=== PATIENT | male | born 1970 | race Caucasian/White ===

== ENCOUNTER 2019-05-29 12:22 | Emergency (ER) | payer SELFPAY ==
[~2019-05-29] VITALS: Ht 188 cm; Wt 81.6 kg
[2019-05-29 12:31] VITALS: BP 126/71
--- NOTE | 2019-05-29 12:38 | NUR ---
Patient ambulated to bed 12. RN evaluating patient at bedside.
[2019-05-29 13:00] VITALS: BP 135/77
--- NOTE | 2019-05-29 13:00 | NUR ---
PT IS A 48 Y/O MALE WHO PRESENTS TO THE ED C/O LACERATION. 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 NO BLEEDING NOTED AT THIS TIME. LAC NOTED TOWARDS TOP OF DIGIT. PT REPORTS 5/10 ACHING FINGER PAIN THAT DOES NOT RADIATE. UNKNOWN LAST TETANUS SHOT. CMS INTACT. PT DENIES, CP, SOB, N/V/D. PT AWAKE AND ALERT, RR EVEN/UNLABORED. PT REPOSITIONED FOR COMFORT, BED IN LOWEST POSITION. ER MD DR. OLSON NOTIFIED. WILL CONTINUE TO MONITOR. HX--HTN RX---LISINOPRIL/ HCTZ
--- NOTE | 2019-05-29 13:15 | NUR ---
PATIENT EXPRESSING WISH TO LEAVE FACILITY TO RETURN TO WORK. PT EDUCATED ON BENEFITS OF MSE AND ED TREATMENT. ED MD OLSON MADE AWARE.
--- NOTE | 2019-05-29 13:20 | NUR ---
PATIENT LEFT WITHOUT BEING SEEN BY DR. OLSON. NO FURTHER CARE PROVIDED FOR PATIENT.
== END 2019-05-29 13:20 | disposition left against medical advice (07) ==
LOC: MED 12:22
DX: S61.213A Laceration without foreign body of left middle finger without damage to nail, initial encounter (principal); Z53.21 Procedure and treatment not carried out due to patient leaving prior to being seen by health care provider; X58.XXXA Exposure to other specified factors, initial encounter; Y93.89 Activity, other specified; Y92.89 Other specified places as the place of occurrence of the external cause; Y99.8 Other external cause status